=== PATIENT | male | born 1960 | race Caucasian/White ===

== ENCOUNTER 2022-01-13 22:56 | Observation (INO) ==
[2022-01-13] MEDS ORDERED: 0.9 % Sodium Chloride 1,000 ML IVC ONE (23:17)
[2022-01-13 23:30] LABS: Basophils % 0.1 %; Eosinophils # 0.2 K/mcL (0.0-0.6); Eosinophils % 2.1 %; Hematocrit 33.5 % (37.5-50.1); Hemoglobin 9.9 g/dL (12.9-16.9); Immature Granulocytes % 0.8 % (0-4); Lymphocytes # 3.5 K/mcL (0.6-4.6); Lymphocytes % 32.9 %; Mean Corpuscular HGB Conc 29.6 g/dL (31.6-35.5); Mean Corpuscular Hemoglobin 22.4 pg (28.0-33.3); Mean Corpuscular Volume 75.8 fL (83.0-100.0); Mean Platelet Volume 10.7 fL (9.4-12.4); Monocytes # 0.1 K/mcL (0.0-1.3); Monocytes % 1.2 %; Neutrophils # 6.7 K/mcL (1.6-8.9); Platelet Count 269 K/mcL (140-400); Red Blood Count 4.42 M/mcL (4.19-5.50); Segmented Neutrophils % 62.9 %; White Blood Count 10.6 K/mcL (4.3-11.1)
[2022-01-13 23:51] LABS: Alanine Aminotransferase 15 Units/L (7-52); Albumin 3.9 g/dL (3.5-5.7); Albumin/Globulin Ratio 1.2 (1.1-2.2); Alkaline Phosphatase 63 Units/L (34-104); Aspartate Amino Transferase 14 Units/L (13-39); BUN/Creatinine Ratio 16 (6-26); Bilirubin,Total 0.4 mg/dL (0.3-1.0); Blood Urea Nitrogen 18 mg/dL (8-23); Calcium 9.1 mg/dL (8.6-10.3); Carbon Dioxide 24 mEq/L (23-29); Chloride 102 mEq/L (98-107); Ethanol < 10 mg/dL (Less than 10); Globulin 3.3 g/dL (2.4-3.5); Glucose 275 mg/dL (70-105); Osmolality,Calculated 300 (280-300); Potassium 3.9 mEq/L (3.5-5.1); Sodium 139 mEq/L (136-145); Total Protein 7.2 g/dL (6.4-8.9); Troponin I < 0.03 ng/mL (< 0.04); eGFR For African Americans > 60 (> 60); eGFR For Non-African Americans > 60 (> 60)
[2022-01-13 23:58] LABS: Prothrombin Time 11.3 Seconds (9.4-12.1)
[2022-01-13] MEDS ORDERED: Isovue-370 500 ML BOTTLE IVP ONE (23:58)
[2022-01-14 00:05] LABS: Activated Partial Thrombo Time 16.6 Seconds (26.0-36.0)
[2022-01-14 00:38] LABS: Hypochromasia Present (Not Present); Platelet Estimate Normal (Normal); Reactive Lymphocytes Present (Not Present)
[2022-01-14 01:47] LABS: Amphetamine Screen,Urine Negative ng/mL (Cutoff=1000); Barbiturate Screen,Urine Negative ng/mL (Cutoff=200); Benzodiazepines Screen,Urine Negative ng/mL (Cutoff=200); Cannabinoid Screen,Urine Positive ng/mL (Cutoff = 50); Cocaine Screen,Urine Negative ng/mL (Cutoff= 300); Opiate Screen,Urine Negative ng/mL (Cutoff=300); Phencyclidine Screen,Urine Negative ng/mL (Cutoff=25)
[2022-01-14 02:05] LABS: Bilirubin,Urine Negative (Negative); Blood,Urine Negative (Negative); Clarity,Urine Clear (Clear); Color,Urine Light-Yellow (Yellow); Glucose,Urine (UA) >=1000 mg/dL (Normal); Hyaline Casts,Urine Few per lpf (None Seen); Ketones,Urine Negative (Negative); Leukocyte Esterase,Urine Negative (Negative); Mucus,Urine Few per lpf (None-Few); Nitrite,Urine Negative (Negative); Protein,Urine 30 mg/dL (Neg-Trace); RBC,Urine 0-3 per hpf (0-3); Specific Gravity,Urine > 1.030 (1.010-1.025); Urobilinogen,Urine Normal (Normal); WBC,Urine 0-3 per hpf (0-3)
[2022-01-14 02:25] LABS: Influenza A PCR Negative (Negative); Influenza B PCR Negative (Negative); Resp. Syncytial Virus PCR Negative (Negative)
[2022-01-14 02:27] LABS: SARS-CoV-2 by PCR (In House) Negative (Negative)
[2022-01-14] MEDS ORDERED: Naloxone 0.4 MG/ML INJ IVP PRN (03:57)
[2022-01-14] MEDS ORDERED: Ondansetron 4 MG/2 ML VIAL IVP PRN (03:57)
[2022-01-14] MEDS ORDERED: 0.9 % Sodium Chloride 1,000 ML IVC SCH (04:00)
[2022-01-14] MEDS ORDERED: Perflutren Lipid Microsphere 1.3 ML in 0.9 % Sodium Chloride 8.7 ML IVP PRN (05:07)
[2022-01-14] MEDS ORDERED: *HR* LORazepam 2 MG/ML VIAL IVP PRN (05:10)
[2022-01-14 05:46] LABS: Hematocrit 30.7 % (37.5-50.1); Hemoglobin 9.2 g/dL (12.9-16.9); Mean Corpuscular Hemoglobin 22.8 pg (28.0-33.3); Mean Platelet Volume 9.8 fL (9.4-12.4); Platelet Count 348 K/mcL (140-400); Red Blood Count 4.04 M/mcL (4.19-5.50); Red Cell Distribution Width 16.6 % (11.5-14.5); White Blood Count 16.4 K/mcL (4.3-11.1)
[2022-01-14 06:16] LABS: Chol/HDL Ratio 4.7 (0-4.9); Magnesium 1.6 mg/dL (1.6-2.6)
[2022-01-14 06:17] LABS: BUN/Creatinine Ratio 17 (6-26); Blood Urea Nitrogen 20 mg/dL (8-23); Carbon Dioxide 26 mEq/L (23-29); Chloride 107 mEq/L (98-107); Glucose 236 mg/dL (70-105); Osmolality,Calculated 298 (280-300); Sodium 139 mEq/L (136-145); eGFR For African Americans > 60 (> 60); eGFR For Non-African Americans > 60 (> 60)
[2022-01-14 07:14] LABS: Troponin I < 0.03 ng/mL (< 0.04)
[2022-01-14] MEDS ORDERED: Albuterol 2.5 MG/3 ML NEBULIZER IH PRN (07:40)
[2022-01-14] MEDS: Albuterol 2.5 MG/3 ML NEBULIZER IH SCH ×4 (07:54→20:17)
[2022-01-14] MEDS: cefTRIAXone 1,000 MG in 0.9 % Sodium Chloride 10 ML IVPB SCH (09:07)
[2022-01-14] MEDS: Aspirin Enteric Coated 81 MG Tablet PO SCH (09:07)
[2022-01-14] MEDS: Azithromycin 250 MG TABLET PO SCH (09:07)
[2022-01-14 10:18] LABS: Estimated Average Glucose 192 mg/dl; Hemoglobin A1C 8.3 %
[2022-01-14] MEDS: Acetaminophen 325 MG TABLET PO PRN (19:52)
[2022-01-15] MEDS: Albuterol 2.5 MG/3 ML NEBULIZER IH SCH ×7 (00:15→23:34)
[2022-01-15 04:41] LABS: Red Cell Distribution Width 16.8 % (11.5-14.5)
[2022-01-15 04:43] LABS: Hematocrit 31.7 % (37.5-50.1); Hemoglobin 9.3 g/dL (12.9-16.9); Mean Corpuscular HGB Conc 29.3 g/dL (31.6-35.5); Mean Corpuscular Hemoglobin 22.3 pg (28.0-33.3); Mean Platelet Volume 10.5 fL (9.4-12.4); Platelet Count 363 K/mcL (140-400); Red Blood Count 4.17 M/mcL (4.19-5.50); White Blood Count 9.3 K/mcL (4.3-11.1)
[2022-01-15 05:01] LABS: % Iron Saturation 3 % (20-55); Iron 13 mcg/dL (65-175); Transferrin 333 mg/dL (203-362)
[2022-01-15 05:19] LABS: Ferritin 16 ng/mL (20-250)
[2022-01-15 05:25] LABS: Folate 11.7 ng/mL (3.0-16.0)
[2022-01-15 05:37] LABS: BUN/Creatinine Ratio 17 (6-26); Blood Urea Nitrogen 12 mg/dL (8-23); Calcium 8.6 mg/dL (8.6-10.3); Carbon Dioxide 26 mEq/L (23-29); Chloride 107 mEq/L (98-107); Glucose 155 mg/dL (70-105); Osmolality,Calculated 295 (280-300); Potassium 3.4 mEq/L (3.5-5.1); Sodium 141 mEq/L (136-145); eGFR For African Americans > 60 (> 60); eGFR For Non-African Americans > 60 (> 60)
[2022-01-15] MEDS: Aspirin Enteric Coated 81 MG Tablet PO SCH (09:14)
[2022-01-15] MEDS: Azithromycin 250 MG TABLET PO SCH (09:16)
[2022-01-15] MEDS: cefTRIAXone 1,000 MG in 0.9 % Sodium Chloride 10 ML IVPB SCH (09:17)
[2022-01-15] MEDS ORDERED: Dextrose 4 GM Chewable Tablets PO PRN ×2 (14:30)
[2022-01-15] MEDS ORDERED: *HR* Dextrose 50 % in Water (Syg) 50 ML SYRINGE IVP PRN (14:30)
[2022-01-15] MEDS ORDERED: D5% in Water 1,000 ML IVC PRN (14:30)
[2022-01-15] MEDS ORDERED: Isovue-370 500 ML BOTTLE IVP ONE (14:32)
[2022-01-15] MEDS: Insulin LISPRO 300 UNITS/3 ML VIAL SUBQ SCH (17:20)
[2022-01-15] MEDS: Acetaminophen 325 MG TABLET PO PRN (22:07)
[2022-01-16] MEDS: Albuterol 2.5 MG/3 ML NEBULIZER IH SCH ×2 (03:37→07:35)
[2022-01-16 06:37] VITALS: BP 125/71; PULSE 65; TEMP 98.1; O2SAT 95
[2022-01-16] MEDS: Insulin LISPRO 300 UNITS/3 ML VIAL SUBQ SCH (07:44)
[2022-01-16] MEDS: cefTRIAXone 1,000 MG in 0.9 % Sodium Chloride 10 ML IVPB SCH (07:44)
[2022-01-16] MEDS: Azithromycin 250 MG TABLET PO SCH (07:45)
[2022-01-16] MEDS: Aspirin Enteric Coated 81 MG Tablet PO SCH (07:45)
== END 2022-01-16 10:53 | disposition home or self-care (01) ==
LOC: EMEROOARM 22:56 → 3BNU 22:56 → SUATTDRO 01-14 03:07 → 3BNU 01-14 03:54
PROVIDERS: ADMIT Internal Medicine; ATTEND Nurse Practitioner